=== PATIENT | male | born 1935 | race Caucasian/White ===

== ENCOUNTER 2016-06-06 19:15 | Emergency (ER) | payer MEDICARE, BC ==
[2016-06-06 19:21] VITALS: RESP 18
--- NOTE | 2016-06-06 19:27 | ED ---
General Adult HPI - General Chief complaint: Dizziness Stated complaint: Altered LOC Time Seen by Provider: 06/06/16 19:27 Source: EMS, RN notes reviewed, old records reviewed Mode of arrival: EMS Limitations: altered mental status - History of Present Illness Initial comments: This is a 1-year-old male in the ER for evaluation of a syncopal event. Patient has not had a prior syncopal event the past, patient states he was feeling lightheaded and dizzy prior to passing out. Patient is going to chemotherapy for CVA, has no history of prior syncope again, no chest pain or stress breath no bowel pain no headaches. Patient was everything from diarrhea , decreased appetite, currently going to oral chemo for colorectal cancer. Patient has had episodes with dehydration and weakness but never to the point of passing out. At this point patient and family states he looks much better, patient states he feels much better. - Related Data Home Medications Medication Instructions Recorded Confirmed Capecitabine [Xeloda] 2,000 mg PO BID 06/06/16 06/06/16 Diphenoxylate HCl/Atropine 1 tab PO QID PRN 06/06/16 06/06/16 [Lomotil] Donepezil [Aricept] 5 mg PO HS 06/06/16 06/06/16 Loperamide [Imodium] 2 mg PO QID PRN 06/06/16 06/06/16 RX: Capecitabine 300 mg PO BID 06/06/16 06/06/16 Allergies Allergy/AdvReac Type Severity Reaction Status Date / Time Penicillins Allergy Unknown Verified 06/06/16 20:07 Review of Systems ROS Statement: Those systems with pertinent positive or pertinent negative responses have been documented in the HPI. ROS Other: All systems not noted in ROS Statement are negative. Past Medical History Past Medical History: Dementia Additional Past Medical History / Comment(s): liver and colon cancer History of Any Multi-Drug Resistant Organisms: None Reported Past Psychological History: No Psychological Hx Reported Smoking Status: Unknown if ever smoked Past Alcohol Use History: None Reported Past Drug Use History: None Reported General Exam Limitations: altered mental status General appearance: alert, in no apparent distress Head exam: Present: atraumatic, normocephalic, normal inspection Eye exam: Present: normal appearance, PERRL, EOMI. Absent: scleral icterus, conjunctival injection, periorbital swelling ENT exam: Present: normal exam, mucous membranes moist Neck exam: Present: normal inspection. Absent: tenderness, meningismus, lymphadenopathy Respiratory exam: Present: normal lung sounds bilaterally. Absent: respiratory distress, wheezes, rales, rhonchi, stridor Cardiovascular Exam: Present: regular rate, normal rhythm, normal heart sounds. Absent: systolic murmur, diastolic murmur, rubs, gallop, clicks GI/Abdominal exam: Present: soft, normal bowel sounds. Absent: distended, tenderness, guarding, rebound, rigid Extremities exam: Present: normal inspection, full ROM, normal capillary refill. Absent: tenderness, pedal edema, joint swelling, calf tenderness Back exam: Present: normal inspection Neurological exam: Present: alert, oriented X3, CN II-XII intact Psychiatric exam: Present: normal affect, normal mood Skin exam: Present: warm, dry, intact, normal color. Absent: rash Course Vital Signs 06/06/16 19:16 Temperature 99 F Pulse Rate 81 Respiratory 18 Rate Blood Pressure 148/65 O2 Sat by Pulse 98 Oximetry - Reevaluation(s) Reevaluation #1: 06/06/16 22:21 Patient remains the most recent hematocrit, much improved with IV hydration and electronically replacement EKG Findings - EKG Comments: EKG Findings:: EKG shows normal sinus rhythm,[id number] Medical Decision Making - Medical Decision Making 80 male ER for evaluation of syncopal event, patient is for dehydration but no chest pain shortness of breath abdominal pain back pain or headaches, patient remained feeling well throughout hospital stay, resuscitated completely in a lot of fluids clot corrected, patient would like to be discharged home will follow-up with his oncologist tomorrow - Lab Data Result diagrams: 06/06/16 19:45 06/06/16 19:45 Lab Results 06/06/16 06/06/16 06/06/16 Range/Units 19:45 19:45 19:45 WBC 6.7 (3.8-10.6) k/uL RBC 3.28 L (4.30-5.90) m/uL Hgb 10.8 L (13.0-17.5) gm/dL Hct 31.7 L (39.0-53.0) % MCV 96.7 (80.0-100.0) fL MCH 32.9 (25.0-35.0) pg MCHC 34.1 (31.0-37.0) g/dL RDW 16.1 H (11.5-15.5) % Plt Count 335 (150-450) k/uL Neutrophils % 91 % Lymphocytes % 4 % Monocytes % 4 % Eosinophils % 1 % Basophils % 0 % Neutrophils # 6.1 (1.3-7.7) k/uL Lymphocytes # 0.2 L (1.0-4.8) k/uL Monocytes # 0.2 (0-1.0) k/uL Eosinophils # 0.1 (0-0.7) k/uL Basophils # 0.0 (0-0.2) k/uL Anisocytosis Slight Macrocytosis Slight Sodium 134 L (137-145) mmol/L Potassium 3.1 L (3.5-5.1) mmol/L Chloride 100 (98-107) mmol/L Carbon Dioxide 23 (22-30) mmol/L Anion Gap 11 mmol/L BUN 14 (9-20) mg/dL Creatinine 1.00 (0.66-1.25) mg/dL Est GFR (MDRD) Af Amer >60 (>60 ml/min/1.73 sqM) Est GFR (MDRD) Non-Af >60 (>60 ml/min/1.73 sqM) Glucose 125 H (74-99) mg/dL Calcium 8.1 L (8.4-10.2) mg/dL Phosphorus 3.0 (2.5-4.5) mg/dL Magnesium 1.4 L (1.6-2.3) mg/dL Total Bilirubin 1.2 (0.2-1.3) mg/dL AST 55 (17-59) U/L ALT 63 (21-72) U/L Alkaline Phosphatase 70 (38-126) U/L Total Creatine Kinase 30 L (55-170) U/L CK-MB (CK-2) 0.4 (0.0-2.4) ng/mL CK-MB (CK-2) Rel Index 1.3 Troponin I <0.012 (0.000-0.034) ng/mL Total Protein 5.7 L (6.3-8.2) g/dL Albumin 3.1 L (3.5-5.0) g/dL Disposition Clinical Impression: Dehydration, Orthostatic hypotension Disposition: HOME SELF-CARE Condition: Good Instructions: Syncope (ED) Referrals: Sandeep Chavez MD [Primary Care Provider] - 1-2 days
[2016-06-06] MEDS ORDERED: SODIUM CHLORIDE 0.9% 1,000 ML IV STA (19:31)
[2016-06-06] MEDS ORDERED: SODIUM CHLORIDE 0.9% 500 ML IV STA (19:31)
[2016-06-06 20:06] LABS: Anisocytosis Slight; Basophils % (A) 0 %; CH 33.8; CHCM 35.1; Eosinophils # (A) 0.1 k/uL (0-0.7); Eosinophils % (A) 1 %; HCT 31.7 % (39.0-53.0); HDW 3.01; HGB 10.8 gm/dL (13.0-17.5); Luc # (Auto) 0.07; Luc % (Auto) 1; Lymphocytes # (A) 0.2 k/uL (1.0-4.8); Lymphocytes % (A) 4 %; MCH 32.9 pg (25.0-35.0); MCHC 34.1 g/dL (31.0-37.0); MCV 96.7 fL (80.0-100.0); Macrocytosis Slight; Mean Platelet Volume 7.7; Monocytes # (A) 0.2 k/uL (0-1.0); Monocytes % (A) 4 %; Neutrophils # (A) 6.1 k/uL (1.3-7.7); Neutrophils % (A) 91 %; RBC 3.28 m/uL (4.30-5.90); RDW 16.1 % (11.5-15.5); WBC 6.7 k/uL (3.8-10.6); WBC (Perox) 7.49
[2016-06-06 20:19] LABS: ALT 63 U/L (21-72); AST 55 U/L (17-59); Alkaline Phosphatase 70 U/L (38-126); Anion Gap 11 mmol/L; Blood Urea Nitrogen 14 mg/dL (9-20); Calcium 8.1 mg/dL (8.4-10.2); Carbon Dioxide 23 mmol/L (22-30); Chloride 100 mmol/L (98-107); Glucose 125 mg/dL (74-99); Magnesium 1.4 mg/dL (1.6-2.3); Non-African American GFR(MDRD) >60 (>60 ml/min/1.73 sqM); Potassium 3.1 mmol/L (3.5-5.1); Sodium 134 mmol/L (137-145); Total Bilirubin 1.2 mg/dL (0.2-1.3); Total Protein 5.7 g/dL (6.3-8.2)
[2016-06-06 20:29] LABS: Creatine Kinase 30 U/L (55-170)
[2016-06-06 20:41] LABS: Creatine Kinase MB 0.4 ng/mL (0.0-2.4); Troponin I <0.012 ng/mL (0.000-0.034)
[2016-06-06] MEDS ORDERED: POTASSIUM BICARB-CITRIC ACID 25 MEQ TABLET.EFF PO STA (20:52)
[2016-06-06] MEDS ORDERED: MAGNESIUM OXIDE 400 MG TAB PO STA (20:52)
[2016-06-06] MEDS ORDERED: POTASSIUM CHLORIDE 10 MEQ, LIDOCAINE 2% INJ 10 MG in SODIUM CHLORIDE 0.9% 100 ML IVPB SCH (21:00)
[2016-06-06] MEDS ORDERED: MAGNESIUM SULFATE-D5W PMX 1 GM in DEXTROSE/WATER 1 100ML.BAG IVPB SCH (21:00)
[2016-06-06 23:05] VITALS: BP 112/59; PULSE 70; TEMP 99.1
== END 2016-06-06 22:55 | disposition home or self-care (01) ==
LOC: EC 19:15
DX: E86.0 Dehydration (principal); I95.1 Orthostatic hypotension; F03.90 Unspecified dementia, unspecified severity, without behavioral disturbance, psychotic disturbance, mood disturbance, and anxiety; Z85.038 Personal history of other malignant neoplasm of large intestine; Z85.05 Personal history of malignant neoplasm of liver; Z79.899 Other long term (current) drug therapy; Z88.0 Allergy status to penicillin
CPT/HCPCS: 36415; 93005; 80053; 82550; 82553; 83735; 84100; 84484; 85025; 99285; 96365; 96368; J2001; J3480; J3475; 82378

== ENCOUNTER → 2017-10-22 | Outpatient (CLI) | payer MEDICARE, BC ==
[2017-10-22 13:31] LABS: Blood Urea Nitrogen 18 mg/dL (9-20)
--- NOTE | 2017-10-22 16:12 | CT ---
EXAMINATION TYPE: CT brain w con DATE OF EXAM: 10/22/2017 COMPARISON: NONE HISTORY: 81-year-old male check, memory loss and confusion for 2 years getting worse. History of col on cancer CT DLP: 995.5 mGycm Automated exposure control for dose reduction was used. Technique: CT scan of the head is performed with IV Contrast, patient injected with 100 mL of Isovue 300. FINDINGS: There is no abnormal enhancing mass or midline shift identified. There is no hydrocephalus. No extra- axial fluid collection. There is mild generalized supratentorial volume loss. Dural venous sinuses ar e patent. The globes are intact intact. Trace mucosal thickening left maxillary sinus. IMPRESSION: Mild generalized atrophy. No enhancing intracranial lesions.
== END | disposition home or self-care (01) ==
LOC: RADCTMAIN 12:49
PROVIDERS: ATTEND Family Medicine
DX: G31.9 Degenerative disease of nervous system, unspecified (principal)
CPT/HCPCS: 82565; 84520; 70460; 36415; Q9967

== ENCOUNTER 2019-05-11 21:43 | Inpatient (IN) | payer MEDICARE, BC ==
[2019-05-11] MEDS ORDERED: SODIUM CHLORIDE 0.9% 1,000 ML IV STA (21:58)
[2019-05-11 22:38] LABS: Basophils # (A) 0.1 k/uL (0-0.2); Basophils % (A) 0 %; Eosinophils # (A) 0.1 k/uL (0-0.7); Eosinophils % (A) 0 %; HCT 34.1 % (39.0-53.0); HGB 11.3 gm/dL (13.0-17.5); Lymphocytes # (A) 0.6 k/uL (1.0-4.8); Lymphocytes % (A) 3 %; MCH 32.3 pg (25.0-35.0); MCV 97.9 fL (80.0-100.0); Mean Platelet Volume 8.2; Monocytes # (A) 0.7 k/uL (0-1.0); Monocytes % (A) 4 %; Neutrophils # (A) 17.1 k/uL (1.3-7.7); Neutrophils % (A) 91 %; Platelet Count 249 k/uL (150-450); RBC 3.49 m/uL (4.30-5.90); RDW 14.8 % (11.5-15.5); WBC 18.7 k/uL (3.8-10.6)
--- NOTE | 2019-05-11 22:42 | XR ---
EXAMINATION TYPE: XR KUB DATE OF EXAM: 05/11/2019 COMPARISON: NONE HISTORY: Abdominal pain TECHNIQUE: FINDINGS: There is no sign of intestinal obstruction or pneumoperitoneum. Fecal pattern is normal. Th ere is no sign of a mass. There are no pathologic calcifications over the kidneys. IMPRESSION: Nonacute abdomen.
[2019-05-11 22:50] LABS: ALT 69 U/L (4-49); AST 69 U/L (17-59); African American GFR (CKD) 78 (>60 ml/min/1.73 sqM); Albumin 3.5 g/dL (3.5-5.0); Alkaline Phosphatase 123 U/L (38-126); Anion Gap 9 mmol/L; Blood Urea Nitrogen 16 mg/dL (9-20); Calcium 8.7 mg/dL (8.4-10.2); Carbon Dioxide 26 mmol/L (22-30); Chloride 105 mmol/L (98-107); Glucose 146 mg/dL (74-99); Non-African American GFR(CKD) 68 (>60 ml/min/1.73 sqM); Potassium 3.8 mmol/L (3.5-5.1); Sodium 140 mmol/L (137-145); Total Bilirubin 0.7 mg/dL (0.2-1.3); Total Protein 6.7 g/dL (6.3-8.2)
[2019-05-11 22:59] LABS: Amylase <30 U/L (30-110)
[2019-05-12 00:14] LABS: Appearance,Urine Cloudy (Clear); Bacteria,Urine Few /hpf; Bilirubin,Urine Negative (Negative); Blood,Urine Small (Negative); Color,Urine Yellow; Glucose,Urine (UA) Trace (Negative); Hyaline Casts,Urine 1 /lpf (0-2); Ketones,Urine Negative (Negative); Leukocyte Esterase,Urine Negative (Negative); Mucus,Urine Rare /hpf; Nitrite,Urine Negative (Negative); PH, Urine 5.5 (5.0-8.0); Protein,Urine 2+ (Negative); RBC,Urine 3 /hpf (0-5); Specific Gravity,Urine 1.023 (1.001-1.035); Urobilinogen,Urine <2.0 mg/dL (<2.0); WBC,Urine 2 /hpf (0-5)
--- NOTE | 2019-05-12 00:19 | ED ---
Abdominal Pain HPI - General Chief Complaint: Abdominal Pain Stated Complaint: MARISSA Time Seen by Provider: 05/11/19 21:45 Source: family, EMS Mode of arrival: EMS Limitations: no limitations - History of Present Illness Initial Comments: Shravan is an 83-year-old gentleman with advanced dementia and known stomach cancer. Patient has an ostomy in place left lower quadrant. Patient is brought to the ER today by his and sons for evaluation of constipation and abdominal pain. reports that his last bowel movement into his ostomy bag was night was quite firm. She's been giving him stool softeners and prune juice since that time. She reports she's had episodes of clenching over in pain holding his abdomen. She reports that reason pain he becomes very pale and looks very uncomfortable however these episodes coming gone since . They're concerned because he hadn't had much stool output and continued to be in pain which prompted them to call the ambulance today. Patient is pleasantly demented and answers most questions by saying no regardless of the question therefore offers no meaningful history. - Related Data Home Medications Medication Instructions Recorded Confirmed Capecitabine 300 mg PO BID 06/06/16 06/06/16 Capecitabine [Xeloda] 2,000 mg PO BID 06/06/16 06/06/16 Diphenoxylate HCl/Atropine 1 tab PO QID PRN 06/06/16 06/06/16 [Lomotil] Donepezil [Aricept] 5 mg PO HS 06/06/16 06/06/16 Loperamide [Imodium] 2 mg PO QID PRN 06/06/16 06/06/16 Allergies Allergy/AdvReac Type Severity Reaction Status Date / Time Penicillins Allergy Unknown Verified 06/06/16 20:07 Review of Systems ROS Statement: Those systems with pertinent positive or pertinent negative responses have been documented in the HPI. ROS Other: All systems not noted in ROS Statement are negative. Past Medical History Past Medical History: Cancer, Dementia Additional Past Medical History / Comment(s): liver and colon cancer History of Any Multi-Drug Resistant Organisms: None Reported Past Psychological History: No Psychological Hx Reported Smoking Status: Unknown if ever smoked Past Alcohol Use History: None Reported Past Drug Use History: None Reported General Exam - General Exam Comments Initial Comments: Physical Exam GENERAL: Chronically ill-appearing and debilitated HENT: Normocephalic, Atraumatic. EYES: PERRL, EOMI PULMONARY: Unlabored respirations. No audible rales rhonchi or wheezing was noted. CARDIOVASCULAR: RRR ABDOMEN: Soft and nontender with normal bowel sounds. Ostomy is pink patent and productive of a soft stool No pulsatile masses SKIN: Skin is clear with no lesions or rashes and otherwise unremarkable. : Deferred NEUROLOGIC: Oriented to self MUSCULOSKELETAL: Generalized debility PSYCHIATRIC: Unable to assess due to advanced dementia Limitations: no limitations Course Vital Signs 05/11/19 05/11/19 21:46 23:32 Temperature 99.7 F H 100.5 F H Pulse Rate 88 81 Respiratory 18 18 Rate Blood Pressure 128/64 128/68 O2 Sat by Pulse 98 98 Oximetry Medical Decision Making - Medical Decision Making The patient was seen and evaluated, history is obtained from patient's and review of medical record 83-year-old gentleman who has seemed to be uncomfortable recently patient offers no meaningful history Labs and imaging were ordered Labs with profound leukocytosis mild transaminitis KUB x-ray was unremarkable a computed tomography scan was ordered was concerning for possible enlarged gallbladder therefore an ultrasound was ordered which is again concerning for acute cholecystitis His results were discussed with surgeon mission analyst Dr. woodruff who is familiar with the patient and states that given the patient's significant medical history he is not a surgical candidate, recommends IV antibiotics admission to medicine for infection secondary to likely cholecystitis. This plan was discussed the at bedside who is agreeable, she confirms that the patient is DNR that would consent to IV fluids and antibiotics. She is concerned about her ability to care for the patient after hospitalization as she is scheduled to have hip arthroplasty this week. Social work will be consult to to assist with appropriate placement. - Lab Data Result diagrams: 05/11/19 22:14 05/11/19 22:14 Lab Results 05/11/19 05/11/19 05/11/19 Range/Units 22:14 22:14 22:14 WBC 18.7 H (3.8-10.6) k/uL RBC 3.49 L (4.30-5.90) m/uL Hgb 11.3 L (13.0-17.5) gm/dL Hct 34.1 L (39.0-53.0) % MCV 97.9 (80.0-100.0) fL MCH 32.3 (25.0-35.0) pg MCHC 33.0 (31.0-37.0) g/dL RDW 14.8 (11.5-15.5) % Plt Count 249 (150-450) k/uL Neutrophils % 91 % Lymphocytes % 3 % Monocytes % 4 % Eosinophils % 0 % Basophils % 0 % Neutrophils # 17.1 H (1.3-7.7) k/uL Lymphocytes # 0.6 L (1.0-4.8) k/uL Monocytes # 0.7 (0-1.0) k/uL Eosinophils # 0.1 (0-0.7) k/uL Basophils # 0.1 (0-0.2) k/uL Sodium 140 (137-145) mmol/L Potassium 3.8 (3.5-5.1) mmol/L Chloride 105 (98-107) mmol/L Carbon Dioxide 26 (22-30) mmol/L Anion Gap 9 mmol/L BUN 16 (9-20) mg/dL Creatinine 1.01 (0.66-1.25) mg/dL Est GFR (CKD-EPI)AfAm 78 (>60 ml/min/1.73 sqM) Est GFR (CKD-EPI)NonAf 68 (>60 ml/min/1.73 sqM) Glucose 146 H (74-99) mg/dL Plasma Lactic Acid Eulogio 1.7 (0.7-2.0) mmol/L Calcium 8.7 (8.4-10.2) mg/dL Total Bilirubin 0.7 (0.2-1.3) mg/dL AST 69 H (17-59) U/L ALT 69 H (4-49) U/L Alkaline Phosphatase 123 (38-126) U/L Total Protein 6.7 (6.3-8.2) g/dL Albumin 3.5 (3.5-5.0) g/dL Amylase <30 L (30-110) U/L Lipase 74 (23-300) U/L Urine Color Urine Appearance (Clear) Urine pH (5.0-8.0) Ur Specific Dodson (1.001-1.035) Urine Protein (Negative) Urine Glucose (UA) (Negative) Urine Ketones (Negative) Urine Blood (Negative) Urine Nitrite (Negative) Urine Bilirubin (Negative) Urine Urobilinogen (<2.0) mg/dL Ur Leukocyte Esterase (Negative) Urine RBC (0-5) /hpf Urine WBC (0-5) /hpf Urine Bacteria (None) /hpf Hyaline Casts (0-2) /lpf Urine Mucus (None) /hpf 05/12/19 Range/Units 00:01 WBC (3.8-10.6) k/uL RBC (4.30-5.90) m/uL Hgb (13.0-17.5) gm/dL Hct (39.0-53.0) % MCV (80.0-100.0) fL MCH (25.0-35.0) pg MCHC (31.0-37.0) g/dL RDW (11.5-15.5) % Plt Count (150-450) k/uL Neutrophils % % Lymphocytes % % Monocytes % % Eosinophils % % Basophils % % Neutrophils # (1.3-7.7) k/uL Lymphocytes # (1.0-4.8) k/uL Monocytes # (0-1.0) k/uL Eosinophils # (0-0.7) k/uL Basophils # (0-0.2) k/uL Sodium (137-145) mmol/L Potassium (3.5-5.1) mmol/L Chloride (98-107) mmol/L Carbon Dioxide (22-30) mmol/L Anion Gap mmol/L BUN (9-20) mg/dL Creatinine (0.66-1.25) mg/dL Est GFR (CKD-EPI)AfAm (>60 ml/min/1.73 sqM) Est GFR (CKD-EPI)NonAf (>60 ml/min/1.73 sqM) Glucose (74-99) mg/dL Plasma Lactic Acid Eulogio (0.7-2.0) mmol/L Calcium (8.4-10.2) mg/dL Total Bilirubin (0.2-1.3) mg/dL AST (17-59) U/L ALT (4-49) U/L Alkaline Phosphatase (38-126) U/L Total Protein (6.3-8.2) g/dL Albumin (3.5-5.0) g/dL Amylase (30-110) U/L Lipase (23-300) U/L Urine Color Yellow Urine Appearance Cloudy (Clear) Urine pH 5.5 (5.0-8.0) Ur Specific Dodson 1.023 (1.001-1.035) Urine Protein 2+ H (Negative) Urine Glucose (UA) Trace H (Negative) Urine Ketones Negative (Negative) Urine Blood Small H (Negative) Urine Nitrite Negative (Negative) Urine Bilirubin Negative (Negative) Urine Urobilinogen <2.0 (<2.0) mg/dL Ur Leukocyte Esterase Negative (Negative) Urine RBC 3 (0-5) /hpf Urine WBC 2 (0-5) /hpf Urine Bacteria Few H (None) /hpf Hyaline Casts 1 (0-2) /lpf Urine Mucus Rare H (None) /hpf Disposition Clinical Impression: Acute cholecystitis, Sepsis Disposition: ADMITTED IP TO THIS HOSP Condition: Serious Is patient prescribed a controlled substance at d/c from ED?: No Referrals: Sandeep Chavez MD [Primary Care Provider] - 1-2 days
--- NOTE | 2019-05-12 00:46 | CT ---
EXAMINATION TYPE: CT abdomen pelvis w con DATE OF EXAM: 05/12/2019 COMPARISON: None HISTORY: Patient presents with abdominal pain and leukocytosis. CT DLP: 1338.6 mGycm Automated exposure control for dose reduction was used. CONTRAST: Performed with IV Contrast, patient injected with 100mL mL of Isovue 300. There is some patchy atelectasis at the lung bases. Heart size is normal. There is dense calcificatio n in the posterior liver that could relate to old granulomatous disease. Gallbladder is dilated and m easures 6 cm. Spleen is intact. There is no evidence of pancreatic mass. The intrahepatic bile ducts are not dilated. There is no adrenal mass. There are multiple small bilateral renal calculi. There are numerous bilate ral renal parapelvic cysts. There is no hydronephrosis. There are bilateral renal cysts that measure up to 3.5 cm. There is no retroperitoneal adenopathy. There is no inguinal hernia. Bladder wall is so mewhat irregular. There is probable left side bladder diverticulum. There is colostomy in the left mi d abdomen. There are postsurgical changes in the rectum with fat stranding and fluid. There is no evidence of a bowel obstruction. There is no mesenteric edema. There is no ascites. There is multilevel spondylotic change in the lumbar spine. There is no compression fracture. Bony pelvis is intact. IMPRESSION: Dilated gallbladder. Cholecystitis is possible. Patchy atelectasis and mild infiltrate at the lung bases. Old granulomatous disease. Hepatic calcification could also relate to treated metastatic disease. Nonobstructing renal calculi. Multiple renal cortical and parapelvic cysts. Postsurgical changes in t he pelvis with fat stranding. Abnormal area measures 6.5 cm. Comparison with an old exam would be hel pful. Recurrent tumor not excluded. No bowel obstruction.
[2019-05-12] MEDS ORDERED: LEVOFLOXACIN 500MG-D5W PMX 500 MG in DEXTROSE/WATER 1 100ML.BAG IVPB STA (00:55)
[2019-05-12] MEDS ORDERED: metroNIDAZOLE-NS PMX 500 MG in SALINE 1 100ML.BAG IVPB STA (00:55)
--- NOTE | 2019-05-12 01:49 | US ---
EXAMINATION TYPE: US gallbladder DATE OF EXAM: 05/12/2019 COMPARISON: None CLINICAL HISTORY: possible cholecystitis on CT. Pain that comes and goes EXAM MEASUREMENTS: Liver Length: 14.8 cm Gallbladder Wall: 0.6 cm CBD: 0.5 cm Right Kidney: 10.9 x 4.6 x 6.2 cm Limited exam due to overlying bowel gas Pancreas: Appears echogenic, suboptimal due to overlying bowel gas, tail not seen Liver: Left lobe not visualized due to overlying bowel gas. Scanned through ribs. Echogenic lesion s with shadow seen in right lobe, largest = 2.6 x 1.8 cm. Gallbladder: Sludge visualized. Free fluid seen adjacent to GB. Limited visualization due to gas. Evidence for sonographic Yung's sign: neg CBD: wnl Right Kidney: Cystic appearing lesions seen. Largest seen lateral lower pole - 3.1 x 2.9 x 3.2 cm IMPRESSION: There is echogenic bile. There is mild pericholecystic fluid. There is distended gallbladder. Cholecy stitis is suspected.No dilated ducts. Echogenic posterior liver foci. These are peripheral and partly calcified. Clinical significance is n ot clear.
[2019-05-12] MEDS ORDERED: NALOXONE 0.4 MG/ML 1 ML VIAL IV PRN (02:06)
[2019-05-12] MEDS ORDERED: ONDANSETRON 4 MG/2 ML VIAL IVP PRN (02:17)
[2019-05-12] MEDS: SODIUM CHLORIDE 0.9% 1,000 ML IV SCH (02:34)
[2019-05-12] MEDS ORDERED: fentaNYL (PF) 50 MCG/ML 2 ML AMP IVP STA (07:09)
[2019-05-12 13:08] LABS: Basophils # (A) 0.1 k/uL (0-0.2); Basophils % (A) 1 %; Eosinophils # (A) 0.2 k/uL (0-0.7); Eosinophils % (A) 1 %; HCT 29.7 % (39.0-53.0); Lymphocytes # (A) 0.7 k/uL (1.0-4.8); Lymphocytes % (A) 6 %; MCH 32.1 pg (25.0-35.0); MCHC 32.7 g/dL (31.0-37.0); MCV 98.2 fL (80.0-100.0); Mean Platelet Volume 7.9; Monocytes # (A) 0.6 k/uL (0-1.0); Monocytes % (A) 5 %; Neutrophils # (A) 9.6 k/uL (1.3-7.7); Neutrophils % (A) 85 %; Platelet Count 217 k/uL (150-450); RBC 3.03 m/uL (4.30-5.90); RDW 14.8 % (11.5-15.5); WBC 11.2 k/uL (3.8-10.6)
[2019-05-12 13:11] LABS: HGB 9.7 gm/dL (13.0-17.5)
[2019-05-12 13:19] LABS: ALT 57 U/L (4-49); AST 52 U/L (17-59); African American GFR (CKD) >90 (>60 ml/min/1.73 sqM); Albumin 2.7 g/dL (3.5-5.0); Alkaline Phosphatase 108 U/L (38-126); Anion Gap 4 mmol/L; Blood Urea Nitrogen 15 mg/dL (9-20); Calcium 8.2 mg/dL (8.4-10.2); Carbon Dioxide 28 mmol/L (22-30); Chloride 110 mmol/L (98-107); Glucose 92 mg/dL (74-99); Non-African American GFR(CKD) 80 (>60 ml/min/1.73 sqM); Potassium 3.7 mmol/L (3.5-5.1); Sodium 142 mmol/L (137-145); Total Bilirubin 0.9 mg/dL (0.2-1.3); Total Protein 5.6 g/dL (6.3-8.2)
--- NOTE | 2019-05-12 16:06 | P.GSCN ---
History of Present Illness Consult date: 05/12/19 History of present illness: This is a 83-year-old male who presents with a complicated medical history. He has a history of metastatic colon cancer. He also has a history of severe dementia. HPI obtained from who is at the bedside. Patient apparently over the last several days has not been having any output out of his ostomy became somewhat distended and was having abdominal pain per the . He has been undergoing chemotherapy as an outpatient. Patient was then brought to the emergency department where he had a CT scan and abdominal ultrasound performed. There was some fluid seen around the gallbladder which raise concern of cholecystitis. General surgery was consulted. Patient today is resting comfortably in bed. He is not experiencing any abdominal pain per the . He states that he also is having liquid output out of his ostomy. He has not had any nausea or vomiting. Past Medical History Past Medical History: Cancer, Dementia Additional Past Medical History / Comment(s): liver and colon cancer History of Any Multi-Drug Resistant Organisms: None Reported Past Psychological History: No Psychological Hx Reported Smoking Status: Unknown if ever smoked Past Alcohol Use History: None Reported Past Drug Use History: None Reported Medications and Allergies Home Medications Medication Instructions Recorded Confirmed Type Donepezil [Aricept] 10 mg PO DAILY 05/12/19 05/12/19 History Magnesium(Unknown Dose) 1 tab PO DAILY 05/12/19 05/12/19 History Memantine [Namenda] 10 mg PO BID 05/12/19 05/12/19 History Allergies Allergy/AdvReac Type Severity Reaction Status Date / Time Penicillins Allergy Unknown Verified 05/12/19 08:29 Surgical - Exam Osteopathic Statement: *. No significant issues noted on an osteopathic structural exam other than those noted in the History and Physical/Consult. Vital Signs Temp Pulse Resp BP Pulse Ox 99.7 F H 88 18 128/64 98 05/11/19 21:46 05/11/19 21:46 05/11/19 21:46 05/11/19 21:46 05/11/19 21:46 - General no distress - Eyes PERRL - Respiratory normal expansion, normal respiratory effort - Cardiovascular Rhythm: regular - Abdomen ostomy patent with liquid stool in bag Abdomen: soft, non tender - Psychiatric responds Results - Labs 05/12/19 12:50 05/12/19 12:50 Abnormal Lab Results - Last 24 Hours (Table) 05/11/19 05/11/19 05/12/19 Range/Units 22:14 22:14 00:01 WBC 18.7 H (3.8-10.6) k/uL RBC 3.49 L (4.30-5.90) m/uL Hgb 11.3 L (13.0-17.5) gm/dL Hct 34.1 L (39.0-53.0) % Neutrophils # 17.1 H (1.3-7.7) k/uL Lymphocytes # 0.6 L (1.0-4.8) k/uL Chloride (98-107) mmol/L Glucose 146 H (74-99) mg/dL Calcium (8.4-10.2) mg/dL AST 69 H (17-59) U/L ALT 69 H (4-49) U/L Total Protein (6.3-8.2) g/dL Albumin (3.5-5.0) g/dL Amylase <30 L (30-110) U/L Urine Protein 2+ H (Negative) Urine Glucose (UA) Trace H (Negative) Urine Blood Small H (Negative) Urine Bacteria Few H (None) /hpf Urine Mucus Rare H (None) /hpf 05/12/19 05/12/19 Range/Units 12:50 12:50 WBC 11.2 H (3.8-10.6) k/uL RBC 3.03 L (4.30-5.90) m/uL Hgb 9.7 L D (13.0-17.5) gm/dL Hct 29.7 L (39.0-53.0) % Neutrophils # 9.6 H (1.3-7.7) k/uL Lymphocytes # 0.7 L (1.0-4.8) k/uL Chloride 110 H (98-107) mmol/L Glucose (74-99) mg/dL Calcium 8.2 L (8.4-10.2) mg/dL AST (17-59) U/L ALT 57 H (4-49) U/L Total Protein 5.6 L (6.3-8.2) g/dL Albumin 2.7 L (3.5-5.0) g/dL Amylase (30-110) U/L Urine Protein (Negative) Urine Glucose (UA) (Negative) Urine Blood (Negative) Urine Bacteria (None) /hpf Urine Mucus (None) /hpf Diabetes panel 05/11/19 05/12/19 Range/Units 22:14 12:50 Sodium 140 142 (137-145) mmol/L Potassium 3.8 3.7 (3.5-5.1) mmol/L Chloride 105 110 H (98-107) mmol/L Carbon Dioxide 26 28 (22-30) mmol/L BUN 16 15 (9-20) mg/dL Creatinine 1.01 0.84 (0.66-1.25) mg/dL Glucose 146 H 92 (74-99) mg/dL Calcium 8.7 8.2 L (8.4-10.2) mg/dL AST 69 H 52 (17-59) U/L ALT 69 H 57 H (4-49) U/L Alkaline Phosphatase 123 108 (38-126) U/L Total Protein 6.7 5.6 L (6.3-8.2) g/dL Albumin 3.5 2.7 L (3.5-5.0) g/dL Calcium panel 05/11/19 05/12/19 Range/Units 22:14 12:50 Calcium 8.7 8.2 L (8.4-10.2) mg/dL Albumin 3.5 2.7 L (3.5-5.0) g/dL Pituitary panel 05/11/19 05/12/19 Range/Units 22:14 12:50 Sodium 140 142 (137-145) mmol/L Potassium 3.8 3.7 (3.5-5.1) mmol/L Chloride 105 110 H (98-107) mmol/L Carbon Dioxide 26 28 (22-30) mmol/L BUN 16 15 (9-20) mg/dL Creatinine 1.01 0.84 (0.66-1.25) mg/dL Glucose 146 H 92 (74-99) mg/dL Calcium 8.7 8.2 L (8.4-10.2) mg/dL Adrenal panel 05/11/19 05/12/19 Range/Units 22:14 12:50 Sodium 140 142 (137-145) mmol/L Potassium 3.8 3.7 (3.5-5.1) mmol/L Chloride 105 110 H (98-107) mmol/L Carbon Dioxide 26 28 (22-30) mmol/L BUN 16 15 (9-20) mg/dL Creatinine 1.01 0.84 (0.66-1.25) mg/dL Glucose 146 H 92 (74-99) mg/dL Calcium 8.7 8.2 L (8.4-10.2) mg/dL Total Bilirubin 0.7 0.9 (0.2-1.3) mg/dL AST 69 H 52 (17-59) U/L ALT 69 H 57 H (4-49) U/L Alkaline Phosphatase 123 108 (38-126) U/L Total Protein 6.7 5.6 L (6.3-8.2) g/dL Albumin 3.5 2.7 L (3.5-5.0) g/dL Assessment and Plan Assessment: Metastatic colon CA. Abdominal pain now resolved Plan: I discussed with the patient and the at bedside that the patient has a completely benign abdominal exam. His white count came down to 11 today. Cholecystitis is less likely.. In the setting of metastatic colon cancer some ascites is expected and this could represent the fluid that was seen around the gallbladder. Clinically patient does not have cholecystitis at this time. I also discussed with the that the patient is a very poor prognosis and is not a good surgical candidate. She was agreeable. She stated she does not wish for him to undergo any major surgeries at this time. Recommend diet as tolerated and continuing antibiotics. No plans for surgical intervention
[2019-05-12] MEDS: MEMANTINE 10 MG TAB PO SCH (22:02)
--- NOTE | 2019-05-12 23:19 | P.HPIM ---
History of Present Illness H&P Date: 05/12/19 Chief Complaint: Abdominal pain History of presenting complaint: This is a pleasant [address] Chavez. As a long-standing history of dementia. Had stage IV colon cancer. Surgical resection was carried out per Dr. Fierro. Ostomy was created. Patient does get follow-up chemotherapy by Dr. Lawrence. Because of advanced dementia all the history is obtained by the at the bedside. Patient presents with 2 days of feeling weak more confused fever decreased as tight. Ostomy been working okay. Some nausea. Patient is by himself is a poor historian. Has the patient was brought in. A computed tomography scan of the abdomen and ultrasound was suggestive for large gallbladder. General surgery Dr. woodruff was consulted for the same. Patient's is at the bedside. Patient otherwise laying in bed comfortably. Ostomy has been working fine. Admitting review of systems difficult to do as patient is a poor historian Past medical history to include: Advanced dementia, colon cancer Social history: . Does still smoke or drink alcohol. Otherwise he will to get about Family history: Reviewed, noncontributory to presentation Physical examination: VITAL SIGNS: 100.5, 81, 18, [birth year]19/1969, 98% room air GENERAL: BMI 25% 7, laying in bed comfortable. EYES: Pupils equal. Conjunctiva normal. HEENT: External appearance of nose and ears normal, oral cavity grossly normal. NECK: JVD not raised; masses not palpable. HEART: First and second heart sounds are normal; no edema. LUNGS: Respiratory rate normal; clear to auscultation. ABDOMEN: Soft, minimal tenderness, liver spleen not palpable, no masses palpable, ostomy bag in place. PSYCH: Patient barely answering any questionsl. NEUROLOGICAL: Cranial nerves grossly intact; no facial asymmetry, power and sensation grossly intact. MUSCULAR skeletal: Evidence of OA LYMPHATICS: No lymph nodes palpable in the axilla and neck INVESTIGATIONS, reviewed in the clinical context: White count 18.7 hemoglobin 11.3 potassium 3.8 creatine 1.01 EST 69 ALT 69. Bilirubin 0.7 Abdominal pelvis computed tomography scan distended gallbladder ultrasound distended gallbladder Assessment: -This is a patient who is a very poor historian brought in by his . She describes as having abdominal pain decreased appetite. Patient did have a low- grade fever when he came in. Also elevated white count. All these clinical findings of that off of distended gallbladder and computed tomography scan and the ultrasound. Gallbladder disease cannot be ruled out. 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 woodruff from general surgery. No plans for surgery at present time. We'll keep the patient with IV antibiotics. Lovenox for DVT prophylaxis. Home medications resumed. We'll order a HIDA scan. Patient did receive a dose of Levaquin in the ER. Continue with the same. Patient's is going for surgery tomorrow morning, who is also patient's caregiver. The clinical social work therapist will be involved Past Medical History Past Medical History: Cancer, Dementia Additional Past Medical History / Comment(s): liver and colon cancer History of Any Multi-Drug Resistant Organisms: None Reported Past Psychological History: No Psychological Hx Reported Smoking Status: Unknown if ever smoked Past Alcohol Use History: None Reported Past Drug Use History: None Reported Medications and Allergies Home Medications Medication Instructions Recorded Confirmed Type Donepezil [Aricept] 10 mg PO DAILY 05/12/19 05/12/19 History Magnesium(Unknown Dose) 1 tab PO DAILY 05/12/19 05/12/19 History Memantine [Namenda] 10 mg PO BID 05/12/19 05/12/19 History Allergies Allergy/AdvReac Type Severity Reaction Status Date / Time Penicillins Allergy Unknown Verified 05/12/19 08:29 Physical Exam Vitals: Vital Signs Temp Pulse Pulse Resp BP BP Pulse Ox 05/12/19 07:00 97.5 F L 64 15 112/63 97 05/12/19 06:56 97.8 F 80 16 140/76 98 05/12/19 03:39 77 14 123/68 97 05/12/19 02:36 98.2 F 80 14 129/63 97 05/11/19 23:32 100.5 F H 81 18 128/68 98 05/11/19 21:46 99.7 F H 88 18 128/64 98 Intake and Output 05/11/19 05/12/19 05/12/19 22:59 06:59 14:59 Output Total 100 Balance -100 Output: Urine 100 Straight 100 Other: Weight 76.657 kg Results CBC & Chem 7: 05/12/19 12:50 05/12/19 12:50 Labs: Abnormal Lab Results - Last 24 Hours (Table) 05/11/19 05/11/19 05/12/19 Range/Units 22:14 22:14 00:01 WBC 18.7 H (3.8-10.6) k/uL RBC 3.49 L (4.30-5.90) m/uL Hgb 11.3 L (13.0-17.5) gm/dL Hct 34.1 L (39.0-53.0) % Neutrophils # 17.1 H (1.3-7.7) k/uL Lymphocytes # 0.6 L (1.0-4.8) k/uL Glucose 146 H (74-99) mg/dL AST 69 H (17-59) U/L ALT 69 H (4-49) U/L Amylase <30 L (30-110) U/L Urine Protein 2+ H (Negative) Urine Glucose (UA) Trace H (Negative) Urine Blood Small H (Negative) Urine Bacteria Few H (None) /hpf Urine Mucus Rare H (None) /hpf
[2019-05-12] MEDS: ENOXAPARIN 40 MG/0.4 ML SYRINGE SQ SCH (23:44)
[2019-05-13] MEDS: SODIUM CHLORIDE 0.9% 1,000 ML IV SCH ×3 (00:54→23:11)
[2019-05-13] MEDS: LEVOFLOXACIN 500MG-D5W PMX 500 MG in DEXTROSE/WATER 1 100ML.BAG IVPB SCH (03:59)
[2019-05-13 07:45] LABS: HCT 28.7 % (39.0-53.0); HGB 9.2 gm/dL (13.0-17.5); MCH 31.6 pg (25.0-35.0); MCV 98.8 fL (80.0-100.0); Macrocytosis Slight; Mean Platelet Volume 8.1; Platelet Count 233 k/uL (150-450); RDW 14.9 % (11.5-15.5); WBC 10.1 k/uL (3.8-10.6)
[2019-05-13 08:02] LABS: Albumin 2.6 g/dL (3.5-5.0); Calcium 7.8 mg/dL (8.4-10.2); Potassium 3.4 mmol/L (3.5-5.1); Total Bilirubin 0.7 mg/dL (0.2-1.3); Total Protein 5.2 g/dL (6.3-8.2)
[2019-05-13] MEDS: DONEPEZIL 10 MG TAB PO SCH (10:41)
[2019-05-13] MEDS: ENOXAPARIN 40 MG/0.4 ML SYRINGE SQ SCH (10:41)
[2019-05-13] MEDS: MEMANTINE 10 MG TAB PO SCH ×2 (10:41→21:34)
--- NOTE | 2019-05-13 13:27 | P.PN ---
Subjective Progress Note Date: 05/13/19 Patient has no pain today. He has been stable overnight. Afebrile Objective - Vital Signs Vital signs: Vital Signs Temp 98.1 F 05/13/19 07:00 Pulse 69 05/13/19 07:00 Resp 16 05/13/19 07:00 BP 132/65 05/13/19 07:00 Pulse Ox 96 05/13/19 07:00 Intake & Output 05/12/19 05/13/19 05/13/19 18:59 06:59 18:59 Intake Total 125 300 Output Total 200 Balance -75 300 Intake: Intake, IV Titration 300 Amount Sodium Chloride 0.9% 1, 300 000 ml @ 100 mls/hr IV . Q10H [facility] Rx#:[id number] Oral 125 Output: Urine 200 Other: Voiding Method Toilet Urinal # Voids 2 2 - Constitutional General appearance: Present: cooperative - Respiratory Details: nonlabored - Cardiovascular Rhythm: regular - Gastrointestinal Gastrointestinal Comment(s): S/NT/ND - Psychiatric Psychiatric: Present: A&O x's 3 - Labs CBC & Chem 7: 05/13/19 07:11 05/13/19 07:11 Labs: Abnormal Lab Results - Last 24 Hours (Table) 05/13/19 05/13/19 Range/Units 07:11 07:11 RBC 2.90 L (4.30-5.90) m/uL Hgb 9.2 L (13.0-17.5) gm/dL Hct 28.7 L (39.0-53.0) % Potassium 3.4 L (3.5-5.1) mmol/L Chloride 113 H (98-107) mmol/L Calcium 7.8 L (8.4-10.2) mg/dL Total Protein 5.2 L (6.3-8.2) g/dL Albumin 2.6 L (3.5-5.0) g/dL Microbiology - Last 24 Hours (Table) 05/11/19 22:14 Blood Culture - Preliminary Blood No Growth after 24 hours Assessment and Plan Assessment: Metastatic colon CA. Abdominal pain now resolved Plan: Patient has benign abdominal exam and leukocytosis has resolved. No plan for general surgery intervention. Patient is poor surgical candidate.
--- NOTE | 2019-05-13 15:52 | NM ---
"EXAMINATION TYPE: NM hepatobiliary wo EF DATE OF EXAM: 05/13/2019 COMPARISON: Ultrasound and CT dated 05/12/2019 HISTORY: Cholecystitis, abnormal ultrasound and CT TECHNIQUE: After the intravenous administration of 5.2 mCi Tc 99m Mebrofenin hepatobiliary scintigrap hy is performed. Immediate images post injection. FINDINGS: Gallbladder is not visualized despite delayed imaging. Proximal margin is uptake of radio pharmaceuti bharathi within the liver. Biliary activity present at 8 minutes. IMPRESSION: Findings consistent with cholecystitis. A Yellow level critical message alert has been initiated for Maurizio Huffman MD via the [facility] | Critical Results System on 05/13/2019 3:49 PM. This message alert has been sent to Maurizio Huffman MD via the preferences provided by the clinician for the receipt of Radiology Critical Findings. [facility] ID [id number]."
--- NOTE | 2019-05-13 17:35 | P.CONS ---
History of Present Illness - Reason for Consult Consult date: 05/13/19 Hx of rectal adenocarcinoma Requesting physician: Maurizio Huffman - Chief Complaint abd pain - History of Present Illness Pt had concerns for abd distension, pt c/o abd discomfort. Pt does not know why he was admitted, he denied abd discomfort, cramping, he states when when asked if he ate lunch, denied hunger, nausea, MARISSA, chest pain, need to go to bathroom or pain. Malignancy history: Initialy seen 10/06/15, presented with rectal bleeding and incontinence, ongoing for at least a few weeks, had lost about 30 lbs, colonoscopy 09/13/15 revealed rectal mass extending from the near the anal verge to 9-10 cm into the rectum. He also had a sigmoid mass, that was near obstructing. CT 09/16/15 revealed no evidence of metastases. He had a LAR with ostomy creation on 09/30/15, path positive for a 9 cm, T3 moderately differentiated adenocarcinoma in the rectum with 0/15 nodes. The sigmoid tumor was an 8 cm moderately differentiated adenocarcinoma, T3, with 4/14 nodes involved. 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 He healed and improved slowly, ultimately started concurrent RT with Xeloda on 01/25/16, completed on 03/02/16. CT on 03/21/16 revealed post treatment changes in the pre sacral area, new 1.5 cm lesion in the rt lobe of the liver, and 1.5 cm soft tissue density in the anterior mediastinum noted. PET revealed uptake in 2 areas of the rt lobe of the liver, highly suspicious for mets, CEA was increased to 88 from 33 earlier in 03/15. He was started on Xeloda, had numerous side effect and ultimately it was stopped. He decided to try Camptosar, CT after 3 cycles appeared to show progression in the rt lobe of the liver. His CEA also showed an increased, Vectibix was added, as he was KRAS wild type. He is s/p 15 cycles of the combination. Chemo was stopped in 08/15 due to cumulative fatigue, and he was continued on Vectibix alone. Labs in 11/15 showed marked increase in CEA to 123, though scans were overall stable so, he was started back on Irinotecan on 11/19/18 and Vectibix continued. He is s/p 8 cycles with few delays due to side effects. He was diagnosed with moderate to severe dementia by Neurology and started on Aricept and Namenda. His last treatment was 04/21, he was being held as his is having surgery and won't be able to drive him. His last CSE was 31 on 05/08, down from 65 in Feb. Review of Systems ROS is negative as well as could be obtained, pt has known dementia Past Medical History Past Medical History: Cancer, Dementia Additional Past Medical History / Comment(s): liver and colon cancer History of Any Multi-Drug Resistant Organisms: None Reported Past Psychological History: No Psychological Hx Reported Smoking Status: Unknown if ever smoked Past Alcohol Use History: None Reported Past Drug Use History: None Reported Medications and Allergies Home Medications Medication Instructions Recorded Confirmed Type Donepezil [Aricept] 10 mg PO DAILY 05/12/19 05/12/19 History Magnesium(Unknown Dose) 1 tab PO DAILY 05/12/19 05/12/19 History Memantine [Namenda] 10 mg PO BID 05/12/19 05/12/19 History Allergies Allergy/AdvReac Type Severity Reaction Status Date / Time Penicillins Allergy Unknown Verified 05/12/19 08:29 Physical Exam Vitals: Vital Signs Temp Pulse Resp BP Pulse Ox 05/13/19 14:39 97.9 F 80 15 138/69 99 05/13/19 07:00 98.1 F 69 16 132/65 96 05/13/19 02:40 97.8 F 72 139/68 97 05/12/19 19:15 98.2 F 80 126/67 96 Intake and Output 05/13/19 05/13/19 05/13/19 06:59 14:59 22:59 Intake Total 300 Balance 300 Intake: Intake, IV Titration 300 Amount Sodium Chloride 0.9% 1, 300 000 ml @ 100 mls/hr IV . Q10H [facility] Rx#:[id number] Other: # Voids 2 - Constitutional General appearance: average body habitus, cooperative, no acute distress - EENT Eyes: anicteric sclerae, EOMI ENT: hearing grossly normal, normal oropharynx - Neck Neck: no lymphadenopathy - Respiratory Respiratory: bilateral: CTA - Cardiovascular Rhythm: regular Heart sounds: normal: S1, S2 Abnormal Heart Sounds: no systolic murmur, no diastolic murmur, no rub, no S3 Gallop, no S4 Gallop, no click, no other leg Peripheral Edema: bilateral: None - Gastrointestinal General gastrointestinal: normal bowel sounds, soft - Neurologic Neurologic: CNII-XII intact - Musculoskeletal Musculoskeletal: generalized weakness, strength equal bilaterally - Psychiatric A&O to self, mood is calm Results CBC & Chem 7: 05/13/19 07:11 05/13/19 07:11 Labs: Abnormal Lab Results - Last 24 Hours (Table) 05/13/19 05/13/19 Range/Units 07:11 07:11 RBC 2.90 L (4.30-5.90) m/uL Hgb 9.2 L (13.0-17.5) gm/dL Hct 28.7 L (39.0-53.0) % Potassium 3.4 L (3.5-5.1) mmol/L Chloride 113 H (98-107) mmol/L Calcium 7.8 L (8.4-10.2) mg/dL Total Protein 5.2 L (6.3-8.2) g/dL Albumin 2.6 L (3.5-5.0) g/dL Microbiology - Last 24 Hours (Table) 05/11/19 22:14 Blood Culture - Preliminary Blood No Growth after [address] scan - abdomen: report reviewed CT scan - pelvis: report reviewed Assessment and Plan (1) Acute cholecystitis Narrative/Plan: Surgery evaluating pt Current Visit: Yes Status: Acute Priority: High Code(s): K81.0 - ACUTE CHOLECYSTITIS SNOMED Code(s): 02656083 (2) Rectal adenocarcinoma Narrative/Plan: Pt treatment is on hold currently, last dose 04/21. CEA was down on last check in office (31 on 05/08/19) Cont to hold treatment for now, pending his having surgery and recovering so she can care for him No contraindication for choley if needed from a Hem/Onc standpoint Current Visit: Yes Status: Chronic Priority: Medium Code(s): C20 - MALIGNANT NEOPLASM OF RECTUM SNOMED Code(s): 829174571
--- NOTE | 2019-05-13 23:19 | P.PN ---
Progress Note - Text Progress Note Date: 05/13/19 Chief Complaint: Abdominal pain interval history: This is a pleasant [address] Chavez. As a long-standing history of dementia. Had stage IV colon cancer. Surgical resection was carried out per Dr. Fierro. Ostomy was created. Patient does get follow-up chemotherapy by Dr. Lawrence. Because of advanced dementia all the history is obtained by the at the bedside. Patient presents with 2 days of feeling weak more confused fever decreased as tight. Ostomy been working okay. Some nausea. Patient is by himself is a poor historian. Has the patient was brought in. A computed tomography scan of the abdomen and ultrasound was suggestive for large gallbladd er. ostomy has been working fine. overall disease opinion is that it's probably not the gallbladder. Today-patient appetite is still down. Denies abdominal pain. Tired. Not eating well. Some of the bedside. Patient's was also the caregiver was admitted this morning for hip surgery. To the hospital.HIDA scan is pending. Admitting review of systems difficult to do as patient is a poor historian Active Medications Donepezil HCl (Aricept) 10 mg PO DAILY [facility] Last Admin: 05/13/19 10:41 Dose: 10 mg Documented by: Enoxaparin Sodium (Lovenox) 40 mg SQ DAILY [facility] Last Admin: 05/13/19 10:41 Dose: 40 mg Documented by: Sodium Chloride (Saline 0.9%) 1,000 mls @ 75 mls/hr IV .[id number] [facility] Last Admin: 05/13/19 23:11 Dose: 75 mls/hr Documented by: Levofloxacin 500 mg/ IV (Solution) 100 mls @ 100 mls/hr IVPB Q24H [facility] Last Admin: 05/13/19 03:59 Dose: 100 mls/hr Documented by: Memantine (Namenda) 10 mg PO BID [facility] Last Admin: 05/13/19 21:34 Dose: 10 mg Documented by: Naloxone HCl (Narcan) 0.2 mg IV Q2M PRN PRN Reason: Opioid Reversal Ondansetron HCl (Zofran) 4 mg IVP Q8HR PRN PRN Reason: Nausea And Vomiting Physical examination: VITAL SIGNS: 97.9, 80, 15, 138/69, 99% room air GENERAL: propped up in bed, tired EYES: Pupils equal. Conjunctiva normal. HEENT: External appearance of nose and ears normal, oral cavity grossly normal. NECK: JVD not raised; masses not palpable. HEART: First and second heart sounds are normal; no edema. LUNGS: Respiratory rate normal; clear to auscultation. ABDOMEN: Soft, minimal tenderness, liver spleen not palpable, no masses palpable, ostomy bag in place. PSYCH: Patient answering occasional question MUSCULAR skeletal: Evidence of OA INVESTIGATIONS, reviewed in the clinical context: HIDA scan-gallbladder not visualized despite delayed imaging. Previous testing White count 10.1, hemoglobin 9.2 potassium 3.4 albumin 2.6 White count 18.7 hemoglobin 11.3 potassium 3.8 creatine 1.01 EST 69 ALT 69. Bilirubin 0.7 Abdominal pelvis computed tomography scan distended gallbladder ultrasound distended gallbladder Assessment: -clinical picture and dermatological findings strongly suggestive of acute acalculous cholecystitis. The clinical impression white count is coming down. Patient's appetite is still down. On antibiotics. 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 Dr. woodruff is being informed of the HIDA scan results. Encourage oral intake. Patient may go to inpatient rehab.
[2019-05-14] MEDS: LEVOFLOXACIN 500MG-D5W PMX 500 MG in DEXTROSE/WATER 1 100ML.BAG IVPB SCH (03:09)
[2019-05-14] MEDS: DONEPEZIL 10 MG TAB PO SCH (08:39)
[2019-05-14] MEDS: ENOXAPARIN 40 MG/0.4 ML SYRINGE SQ SCH (08:39)
[2019-05-14] MEDS: MEMANTINE 10 MG TAB PO SCH ×2 (08:39→19:35)
[2019-05-14] MEDS: SODIUM CHLORIDE 0.9% 1,000 ML IV SCH ×2 (17:03→17:52)
--- NOTE | 2019-05-14 17:09 | P.PN ---
Subjective Progress Note Date: 05/14/19 Patient has no pain today. He has been stable overnight. Afebrile Objective - Vital Signs Vital signs: Vital Signs Temp 97.7 F 05/14/19 07:00 Pulse 73 05/14/19 07:00 Resp 16 05/14/19 07:00 BP 141/64 05/14/19 07:00 Pulse Ox 97 05/14/19 07:00 Intake & Output 05/13/19 05/14/19 05/14/19 18:59 06:59 18:59 Intake Total 50 450 Output Total 200 Balance 50 250 Intake: Intake, IV Titration 450 Amount Levofloxacin 500Mg-D5w 100 Pmx 500 mg In Dextrose/ Water 1 100ml.bag @ 100 mls/hr IVPB Q24H [facility] Rx#: [id number] Sodium Chloride 0.9% 1, 350 000 ml @ 75 mls/hr IV . [id number] [facility]ANI[facility] Rx#:[id number] Oral 50 Output: Urine 200 Other: Voiding Method Toilet # Voids 1 1 2 - Constitutional General appearance: Present: cooperative - Respiratory Details: nonlabored - Cardiovascular Rhythm: regular - Gastrointestinal Gastrointestinal Comment(s): S/NT/ND - Psychiatric Psychiatric: Present: A&O x's 3 - Labs CBC & Chem 7: 05/13/19 07:11 05/13/19 07:11 Labs: Microbiology - Last 24 Hours (Table) 05/11/19 22:14 Blood Culture - Preliminary Blood No Growth after 48 hours Assessment and Plan Assessment: Metastatic colon CA. Abdominal pain now resolved Plan: Patient did have nonvisualization of gallbladder on HIDA. He does not have any other clinical symptoms of acute cholecystitis and given his comorbidities and surgical history patient is high risk for surgical intervention. At this time I would recommend continuing antibiotics and conservative management. No plan for acute surgical intervention
--- NOTE | 2019-05-14 17:11 | P.PN ---
Progress Note - Text Progress Note Date: 05/14/19 Chief Complaint: Abdominal pain interval history: This is a pleasant [address] Chavez. As a long-standing history of dementia. Had stage IV colon cancer. Surgical resection was carried out per Dr. Fierro. Ostomy was created. Patient does get follow-up chemotherapy by Dr. Lawrence. Because of advanced dementia all the history is obtained by the at the bedside. Patient presents with 2 days of feeling weak more confused fever decreased as tight. Ostomy been working okay. Some nausea. Patient is by himself is a poor historian. Has the patient was brought in. A computed tomography scan of the abdomen and ultrasound was suggestive for large gallbladd er. ostomy has been working fine. Dr. woodruff's opinion is that it's probably not the gallbladder. Today-patient denies any abdominal pain. Sitting up. Eating about 25-50% of his meals. Poor historian. Does not remember much. Admitting review of systems difficult to do as patient is a poor historian Active Medications Donepezil HCl (Aricept) 10 mg PO DAILY [facility] Last Admin: 05/14/19 08:39 Dose: 10 mg Documented by: Enoxaparin Sodium (Lovenox) 40 mg SQ DAILY [facility] Last Admin: 05/14/19 08:39 Dose: 40 mg Documented by: Sodium Chloride (Saline 0.9%) 1,000 mls @ 75 mls/hr IV .[id number] [facility] Last Admin: 05/14/19 17:03 Dose: Not Given Documented by: Levofloxacin 500 mg/ IV (Solution) 100 mls @ 100 mls/hr IVPB Q24H [facility] Last Admin: 05/14/19 03:09 Dose: 100 mls/hr Documented by: Memantine (Namenda) 10 mg PO BID [facility] Last Admin: 05/14/19 08:39 Dose: 10 mg Documented by: Naloxone HCl (Narcan) 0.2 mg IV Q2M PRN PRN Reason: Opioid Reversal Ondansetron HCl (Zofran) 4 mg IVP Q8HR PRN PRN Reason: Nausea And Vomiting Physical examination: VITAL SIGNS: 97.7, 73, 16, 141/64, 97% on room air GENERAL: propped up in bed, awake, appears comfortable EYES: Pupils equal. Conjunctiva normal. HEENT: External appearance of nose and ears normal, oral cavity grossly normal. NECK: JVD not raised; masses not palpable. HEART: First and second heart sounds are normal; no edema. LUNGS: Respiratory rate normal; clear to auscultation. ABDOMEN: Soft, no tenderness, liver spleen not palpable, no masses palpable, ostomy bag in place. PSYCH: Patient answering occasional question MUSCULAR skeletal: Evidence of OA INVESTIGATIONS, reviewed in the clinical context: Previous testing White count 10.1, hemoglobin 9.2 potassium 3.4 albumin 2.6 White count 18.7 hemoglobin 11.3 potassium 3.8 creatine 1.01 EST 69 ALT 69. Bilirubin 0.7 Abdominal pelvis computed tomography scan distended gallbladder ultrasound distended gallbladder HIDA scan-gallbladder not visualized despite delayed imaging. Assessment: -clinical picture and dermatological findings strongly suggestive of acute acalculous cholecystitis. The clinical impression white count is coming down. Appetite is slowly picking up.. On antibiotics. 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 No surgical intervention. Encouraged oral intake. Looking at patient going to rehab on . Discussed the patient's was also hospitalized with hip replacement
--- NOTE | 2019-05-14 18:09 | P.PN ---
Subjective Progress Note Date: 05/14/19 Principal diagnosis: abd pain Pt is laying comfortably in bed, denied MARISSA, nausea, abd pain, MA reports only eating a small amount this AM Objective - Vital Signs Vital signs: Vital Signs Temp 97.7 F 05/14/19 07:00 Pulse 73 05/14/19 07:00 Resp 16 05/14/19 07:00 BP 141/64 05/14/19 07:00 Pulse Ox 97 05/14/19 07:00 Intake & Output 05/13/19 05/14/19 05/14/19 18:59 06:59 18:59 Intake Total 50 450 Output Total 200 Balance 50 250 Intake: Intake, IV Titration 450 Amount Levofloxacin 500Mg-D5w 100 Pmx 500 mg In Dextrose/ Water 1 100ml.bag @ 100 mls/hr IVPB Q24H JANIYA Rx#: [id number] Sodium Chloride 0.9% 1, 350 000 ml @ 75 mls/hr IV . [id number] JANIYA Rx#:[id number] Oral 50 Output: Urine 200 Other: Voiding Method Toilet Toilet # Voids 1 1 2 - Constitutional General appearance: Present: average body habitus, cooperative, no acute distress - EENT Eyes: Present: anicteric sclerae, EOMI ENT: Present: hearing grossly normal - Respiratory Respiratory: bilateral: CTA - Cardiovascular Heart sounds: normal: S1, S2 - Peripheral edema leg Peripheral Edema: bilateral: None - Gastrointestinal General gastrointestinal: Present: normal bowel sounds, soft - Neurologic Neurologic: Present: CNII-XII intact - Musculoskeletal Musculoskeletal: Present: generalized weakness, strength equal bilaterally - Psychiatric Psychiatric Comment(s): Alert and oriented x2 - Labs CBC & Chem 7: 05/13/19 07:11 05/13/19 07:11 Labs: Microbiology - Last 24 Hours (Table) 05/11/19 22:14 Blood Culture - Preliminary Blood No Growth after 48 hours Assessment and Plan (1) Acute cholecystitis Narrative/Plan: Surgery evaluating pt Current Visit: Yes Status: Acute Priority: High Code(s): K81.0 - ACUTE CHOLECYSTITIS SNOMED Code(s): 17973154 (2) Rectal adenocarcinoma Narrative/Plan: Pt treatment is on hold currently, last dose 04/21. CEA was down on last check in office (31 on 1/9/20) Cont to hold treatment for now, pending his having surgery and recovering so she can care for him No contraindication for choley if needed from a Hem/Onc standpoint F/U appt date and time in DC Current Visit: Yes Status: Chronic Priority: Medium Code(s): C20 - MALIGNANT NEOPLASM OF RECTUM SNOMED Code(s): 983400469
[2019-05-15] MEDS: LEVOFLOXACIN 500MG-D5W PMX 500 MG in DEXTROSE/WATER 1 100ML.BAG IVPB SCH (02:38)
[2019-05-15 07:03] LABS: HCT 27.4 % (39.0-53.0); HGB 9.1 gm/dL (13.0-17.5); MCH 32.8 pg (25.0-35.0); MCHC 33.2 g/dL (31.0-37.0); MCV 98.7 fL (80.0-100.0); Mean Platelet Volume 7.9; Platelet Count 290 k/uL (150-450); RBC 2.78 m/uL (4.30-5.90); RDW 14.6 % (11.5-15.5); WBC 10.1 k/uL (3.8-10.6)
[2019-05-15 07:17] LABS: African American GFR (CKD) >90 (>60 ml/min/1.73 sqM); Anion Gap 7 mmol/L; Blood Urea Nitrogen 9 mg/dL (9-20); Calcium 7.4 mg/dL (8.4-10.2); Carbon Dioxide 25 mmol/L (22-30); Chloride 110 mmol/L (98-107); Glucose 86 mg/dL (74-99); Non-African American GFR(CKD) 82 (>60 ml/min/1.73 sqM); Sodium 142 mmol/L (137-145)
[2019-05-15 08:04] VITALS: RESP 16
[2019-05-15] MEDS: MEMANTINE 10 MG TAB PO SCH (08:04)
[2019-05-15] MEDS: ENOXAPARIN 40 MG/0.4 ML SYRINGE SQ SCH (08:04)
[2019-05-15] MEDS: DONEPEZIL 10 MG TAB PO SCH (08:04)
[2019-05-15] MEDS ORDERED: Potassium Replacement Protocol 1 EACH MISC MISCELLANE PRN (09:57)
[2019-05-15] MEDS: POTASSIUM CHLORIDE ER 20 MEQ TAB.ER PO SCH ×2 (10:43→11:17)
[2019-05-15] MEDS: SODIUM CHLORIDE 0.9% 1,000 ML IV SCH (10:43)
--- NOTE | 2019-05-15 13:50 | P.DS ---
Providers Date of admission: 05/12/19 11:25 Expected date of discharge: 05/15/19 Attending physician: Maurizio Huffman Consults: 05/12/19 02:17 Consult Physician Stat Consulting Provider: Cirilo Aj Consult Reason/Comments: acute hank Do you want consulting provider notified?: Already Contacted 05/12/19 23:49 Consult Physician Routine Consulting Provider: Grayson Lawrence Consult Reason/Comments: Colon cancer Do you want consulting provider notified?: Yes Primary care physician: Eric Chavez [facility] Course: Chief Complaint: Abdominal pain Hospital course: This is a pleasant [address] Chavez. As a long-standing history of dementia. Had stage IV rectal adenocarcinoma. Surgical resection was carried out per Dr. Fierro. Ostomy was created. Patient does get follow-up chemotherapy by Dr. Lawrence. Because of advanced dementia all the history is obtained by the at the bedside. Patient presents with 2 days of feeling weak more confused fever . Ostomy been working okay. Some nausea. Patient is by himself is a poor historian. A computed tomography scan of the abdomen and ultrasound was suggestive for large gallbladder. HIDA scan showed a poor ejection fraction. ostomy has been working fine. Patient's was treated with antibiotics. Dr. aj's opinion is that it's probably not the gallbladder. To be managed conservatively. With antibiotics. Patient's is also hospitalized for hip surgery.His caregiver. She is also going to the [facility]. Today-patient denies any abdominal pain. Sitting up. Comfortable. Oral intake is improved. Potassium was replaced today Consultants: Dr. aj from general surgery Physical examination: VITAL SIGNS: 97.5, 81, 16, 156/75, 100% on room air GENERAL: propped up in bed, awake, appears comfortable EYES: Pupils equal. Conjunctiva normal. HEENT: External appearance of nose and ears normal, oral cavity grossly normal. NECK: JVD not raised; masses not palpable. HEART: First and second heart sounds are normal; no edema. LUNGS: Respiratory rate normal; clear to auscultation. ABDOMEN: Soft, no tenderness, liver spleen not palpable, no masses palpable, ostomy bag in place. PSYCH: Patient answering occasional question MUSCULAR skeletal: Evidence of OA INVESTIGATIONS, reviewed in the clinical context: White count 10.1 hemoglobin 9.1 potassium 3 creatinine 0.8 Previous testing White count 10.1, hemoglobin 9.2 potassium 3.4 albumin 2.6 White count 18.7 hemoglobin 11.3 potassium 3.8 creatine 1.01 EST 69 ALT 69. Bilirubin 0.7 Abdominal pelvis computed tomography scan distended gallbladder ultrasound distended gallbladder HIDA scan-gallbladder not visualized despite delayed imaging. Assessment: -Possible acute acalculous cholecystitis. 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 No surgical intervention. Encouraged oral intake. Looking at patient going to rehab on . Discussed the patient's was also hospitalized with hip replacement Patient Condition at Discharge: Stable Plan - Discharge Summary Discharge Rx Participant: Yes New Discharge Prescriptions: No Action Memantine [Namenda] 10 mg PO BID Donepezil [Aricept] 10 mg PO DAILY Magnesium(Unknown Dose) 1 tab PO DAILY Discharge Medication List Donepezil [Aricept] 10 mg PO DAILY 05/12/19 [History] Magnesium(Unknown Dose) 1 tab PO DAILY 05/12/19 [History] Memantine [Namenda] 10 mg PO BID 05/12/19 [History] Follow up Appointment(s)/Referral(s): Grayson Lawrence MD [STAFF PHYSICIAN] - 06/26/19 11:00 am Sandeep Chavez MD [Primary Care Provider] - 1-2 days
[2019-05-15 15:08] VITALS: BP 132/53; PULSE 80; TEMP 98.6
== END 2019-05-15 15:30 | DRG 445 ==
LOC: EC 21:43 → 4SSUR 05-12 02:18 → OBSVTOIN 05-12 11:25
PROVIDERS: ADMIT Hospitalist; ATTEND Hospitalist
DX: K81.0 Acute cholecystitis (principal); C20 Malignant neoplasm of rectum; C77.2 Secondary and unspecified malignant neoplasm of intra-abdominal lymph nodes; C78.7 Secondary malignant neoplasm of liver and intrahepatic bile duct; E87.6 Hypokalemia; E88.09 Other disorders of plasma-protein metabolism, not elsewhere classified; F02.80 Dementia in other diseases classified elsewhere, unspecified severity, without behavioral disturbance, psychotic disturbance, mood disturbance, and anxiety; D64.81 Anemia due to antineoplastic chemotherapy; T45.1X5A Adverse effect of antineoplastic and immunosuppressive drugs, initial encounter; G30.9 Alzheimer's disease, unspecified; Z66 Do not resuscitate; Z79.899 Other long term (current) drug therapy; Z53.8 Procedure and treatment not carried out for other reasons; Z88.0 Allergy status to penicillin; Z93.3 Colostomy status
CPT/HCPCS: 36415; 51701; 74018; 74177; 76705; 78226; 80048; 80053; 81001; 82150; 83605; 83690; 85025; 85027; 87040; 96360; 96361; 96365; 96367; 96375; 99285